=== PATIENT | male | born 1980 | race Caucasian/White ===

== ENCOUNTER 2018-11-07 22:50 | Emergency (ER) | payer MEDICAID ==
[~2018-11-07] VITALS: Ht 170.2 cm; Wt 86.4 kg
[2018-11-07 22:51] VITALS: BP 136/81
[2018-11-07] MEDS ORDERED: PROPARACAINE OPHTH 0.5%, 15ML ONE (23:09)
[2018-11-07] MEDS ORDERED: FLUORESCEIN OPHTHALMIC 1 MG STRIP ONE (23:09)
[2018-11-07] MEDS ORDERED: PROPARACAINE OPHTH 0.5%, 15ML RIGHTEYE ONE (23:30)
[2018-11-07] MEDS ORDERED: FLUORESCEIN OPHTHALMIC 1 MG STRIP RIGHTEYE ONE (23:30)
--- NOTE | 2018-11-08 | NUR ---
PT D/C WITH D/C SUMMARY. ALL QUESTIONS ANSWERED. PT AMBULATES TO REGISTRATION DESK WITH STEADY GAIT FOR D/C HOME. PT DENIES ANY OTHER NEEDS PERTAINING TO THIS VISIT.
== END 2018-11-08 00:04 ==
LOC: ED 23:09
DX: H10.31 Unspecified acute conjunctivitis, right eye (principal); B30.1 Conjunctivitis due to adenovirus
CPT/HCPCS: 99282